=== PATIENT | female | born 1985 | race Caucasian/White ===

== ENCOUNTER → 2016-11-19 | Outpatient (CLI) | payer BC ==
[~2016-11-19] MED LIST: BACTRIM DS 8001 TA1 PO; BENZONATATE200 MG PO; HYDROCODONE1 TABLET PO; IBU-8800 MG PO; KEFLEX 500MG.500 MG PO; MEDROL 4MG. DOSE4 MG PO; NOMEDS XX; NORCO 325 MG-51 TAB PO; PRENATAL PLUS1 TA1 PO; PROVENTIL0.09 MG/A1 IH; TYLENOL W/CODEI1 TA2 PO
--- NOTE | 2016-11-20 12:36 | RADIOLOGY REPORT PS360 ---
US PREG COMP: INDICATION: ANATOMY OB US ORDERING PHYSICIAN: Himanshu Verma MD PATIENT AGE: 31 years TECHNIQUE: ultrasound transabdominal scanning. COMPARISON: No previous relevant studies. FINDINGS: Single viable intrauterine gestation. The fetus was breech at beginning of the exam but turned to the supine position at the end of the exam.. Placenta: Anterior placenta grade 1. There is average amount fluid. The cervix appears satisfactory. Closed and measuring 3 cm in length. Complete survey performed and was unremarkable on the submitted images as in PACS. No discrete anomalies identified on survey imaging by technologist. Active fetus. Three-vessel cord with satisfactory umbilical cord insertion. 4- chamber heart noted. Survey of brain & ventricles. Face and neck survey unremarkable. Diaphragm and chest views unremarkable. Abdomen: Both kidneys noted and unremarkable. Stomach noted and satisfactory. Spine: Survey of the spine satisfactory with no anomalies identified nor imaged. Both arms and legs noted. Amniotic Fluid: Adequate. Maternal adnexa: No significant findings. Measurements: Average ultrasound age 20 weeks 2 days. Gestational Age 19 weeks 2 days. Estimated due date by ultrasound age 204/06/2017. Estimated weight 343 g . BPD = 20 weeks 0 days OFD = 21 weeks 0 days HC = 19 weeks 6 days AC = 20 weeks 6 days FL = 20 weeks 0 days Heart Rate = 134 BPM Cerebellum = 20 weeks 2 days Humerus = 20 weeks 4 days HC/AC is 1.11. CI is 73%. FL/BPD is 69%. FL/AC is 20%. IMPRESSION: Single live fetus at 20 weeks 2 days in the cephalic presentation. No obvious anomalies. Anterior placenta without previa. Please see above for detail
== END ==
LOC: RAD 13:00
DX: Z34.80 Encounter for supervision of other normal pregnancy, unspecified trimester (principal); Z36.9 Encounter for antenatal screening, unspecified

== ENCOUNTER 2016-12-19 09:56 | Outpatient (CLI) | payer BC ==
[~2016-12-19] VITALS: Ht 162.6 cm; Wt 76.7 kg
[2016-12-19 10:20] VITALS: BP 118/64
[2016-12-19 11:06] LABS: LYMPH # 0.5 K/mm3 (0.7-4.5); LYMPH % 2.8 % (10-50.0)
[2016-12-19 11:23] LABS: NEUTROPHILS 89 % (42-76)
== END 2016-12-19 13:55 | disposition home or self-care (01) ==
LOC: OBOUT 09:56 → OB 09:57 → OBOUT 13:55
PROVIDERS: Nurse Practitioner Obstetrics & Gynecology
DX: O26.92 Pregnancy related conditions, unspecified, second trimester (principal); Z3A.24 24 weeks gestation of pregnancy; R11.2 Nausea with vomiting, unspecified

== ENCOUNTER 2016-12-31 08:24 | Outpatient (CLI) | payer BC ==
[2016-12-31 09:33] LABS: HEMOGLOBIN 11.9 g/dL (12.2-16.2)
[2016-12-31 09:53] LABS: ABO BLOOD TYPE O; RH BLOOD TYPE NEGATIVE; RHOGAM LOT # RHOGAM INFORMATION
== END 2016-12-31 10:55 | disposition home or self-care (01) ==
LOC: LAB 08:24
PROVIDERS: Nurse Practitioner Obstetrics & Gynecology
DX: O99.810 Abnormal glucose complicating pregnancy (principal)
CPT/HCPCS: J2790